=== PATIENT | male | born 1960 | race Caucasian/White ===

== ENCOUNTER 2021-07-17 10:36 | Emergency (ER) | payer OTHER, SELFPAY ==
[2021-07-17] VITALS (16 sets, daily range): BP systolic 138–188; BP diastolic 84–100; PULSE 70–98; RESP 12–21; TEMP 36.4–36.8; O2SAT 99–100
--- NOTE | ~2021-07-17 | XR_ITS ---
EXAMINATION: XR chest 2V EXAM DATE: 07/17/2021 10:57 INDICATION: Left Anterior Cp, Radiating Posteriorly, Acute Onset,. TECHNIQUE: Frontal and lateral projections of the chest obtained and reviewed. There is no prior mars dy for comparison. FINDINGS: The lungs are clear. There are no pleural effusions. The cardiomediastinal silhouette is within normal limits. There is no pneumothorax suspected. The bones and soft tissues are unremarkab le. IMPRESSION: No acute cardiopulmonary findings. Reviewed, dictated and finalized at location B.
--- NOTE | 2021-07-17 10:38 | ECG_ITS ---
Measurements Intervals [place] Rate: 88 P: 56 MS: 152 QRS: 26 QRSD: 97 T: 47 QT: 357 QTc: 432 Interpretive Statements SINUS RHYTHM POSSIBLE LEFT ATRIAL ENLARGEMENT EARLY PRECORDIAL R/S TRANSITION BORDERLINE ECG Electronically Signed On 07-17-2021 10:50:07 CDT by Stewart Gerber D.O.
[2021-07-17 11:02] LABS: Basophils Absolute Auto 0.1 K/mm3 (0.0-0.1); Basophils Percent Auto 1.1 % (0.2-1.2); Eosinophils Absolute Auto 0.3 K/mm3 (0-0.3); Eosinophils Percent Auto 5.8 % (0-4.4); Hematocrit 45.4 % (42.0-52.0); Immature Granulocyte Absolute 0.03 K/mm3 (0.00-0.031); Immature Granulocyte Percent A 0.5 % (0-0.5); Lymphocytes Absolute Auto 1.93 K/mm3 (0.9-3.2); Lymphocytes Percent Auto 33.9 % (18.3-44.2); Mean Corpuscular Hemoglobin 32.6 pg (26-34); Mean Corpuscular Volume 98.7 fl (80-100); Mean Platelet Volume 9.8 fl (7.4-10.4); Monocytes Absolute Auto 0.7 K/mm3 (0.1-0.6); Monocytes Percent Auto 11.4 % (2.6-8.5); Neutrophils Absolute Auto 2.7 K/mm3 (1.3-6.7); Neutrophils Percent Auto 47.3 % (45.5-73.1); Platelet Count Result 201 k/mm3 (150-375); Red Cell Distribution Width 13.5 % (11.5-14.5); White Blood Count 5.7 K/mm3 (4.5-10.0)
[2021-07-17 11:13] LABS: INR 0.9; Prothrombin Time 11.6 Seconds (11.1-14.7)
[2021-07-17 11:14] LABS: Partial Thromboplastin Time 28.9 SECONDS (22.3-36.8)
[2021-07-17 11:17] LABS: Anion Gap 10 mmol/L (8-16); Blood Urea Nitrogen 21 mg/dL (9-20); Calcium 9.5 mg/dL (8.4-10.2); Carbon Dioxide 27 mmol/L (22-30); Chloride 103 mmol/L (98-107); Estimated CRCL calculation 76 ml/min; Estimated Glomerular Filt Rate > 60; Glucose 158 mg/dL (65-110); Sodium 140 mmol/L (137-145)
[2021-07-17 11:28] LABS: Troponin I < 0.012 ng/mL (0.000-0.034)
[2021-07-17] MEDS: ASPIRIN 81 MG CHEWABLE TABLET 324 MG PO (12:01)
--- NOTE | 2021-07-17 12:54 | ED.CHESTPAIN ---
HPI - Chest Pain General Chief Complaint: Chest Pain Stated Complaint: CP Time Seen by Provider: 07/17/21 12:35 Source: patient Mode of arrival: ambulatory Limitations: no limitations History of Present Illness HPI narrative: Patient is a 61-year-old male complaining of chest pain, midsternal, pressure, 6 out of 10, radiating to back accompanied by shortness of breath that started today. Patient states that it occurred after eating. Patient denies any abdominal pain, nausea, vomiting, diaphoresis, fever or chills. Related Data Home Medications Medication Instructions Recorded Confirmed No Home Medications 07/17/21 07/17/21 Allergies Allergy/AdvReac Type Severity Reaction Status Date / Time No Known Allergies Allergy Verified 07/17/21 11:58 Review of Systems Review of Systems: All systems reviewed & are unremarkable except as noted in HPI and below Constitutional: Constitutional: Denies body ache(s), Denies chills, Denies excessive sweating, Denies fatigue, Denies fever(s), Denies headache(s), Denies lethargy, Denies malaise, Denies weakness and Denies weight loss Eyes: Eyes: Denies blurry vision, Denies change in vision and Denies loss of vision ENT: Denies dizziness, Denies ear discharge, Denies headache(s), Denies lip swelling, Denies epistaxis, Denies nasal congestion, Denies neck pain, Denies throat swelling and Denies tongue swelling Cardiovascular: Cardiovascular: Denies diaphoresis, Denies rapid heart rate, Denies edema, Denies irregular heart rhythm, Denies lightheadedness and Denies palpitations Respiratory: Respiratory: Denies chest congestion, Denies cough and Denies hemoptysis Gastrointestinal: Gastrointestinal: Denies abdominal pain, Denies melena, Denies hematochezia, Denies diarrhea, Denies nausea, Denies vomiting and Denies hematemesis Musculoskeletal: Musculoskeletal: Denies abnormal gait, Denies deformity, Denies joint swelling, Denies limited range of motion, Denies neck pain and Denies numbness Neurologic: Denies Abnormal speech present, Denies abnormal gait, Denies confusion, Denies dizziness, Denies headache(s), Denies focal weakness, Denies loss of vision, Denies numbness, Denies Other visual disturbances, Denies Sensory deficit (Neuro) and Denies weakness Psychiatric: Psychiatric: Denies confusion, Denies depression, Denies auditory hallucinations, Denies homicidal ideation and Denies suicidal ideation Endocrine: Endocrine: Denies cold intolerance, Denies excessive sweating, Denies fatigue, Denies heat intolerance and Denies palpitations Hematologic/Lymphatic: Hematologic/Lymphatic: Denies easy bleeding and Denies easy bruising Allergic/Immunologic: Allergic/Immunologic: Denies lip swelling, Denies throat swelling and Denies tongue swelling PMF Family History Family History Other Family history of cardiovascular disease Social History Social History Smoking status: Smoker, status unknown Alcohol intake: current Exam Const: General: cooperative, healthy appearing, comfortable, no acute distress, well developed, alert and awake; No confusion Orientation/consciousness: oriented to person, oriented to place, oriented to time, patient oriented x3 and No confusion Limitations: no limitations HENMT: Head: normal to inspection, normocephalic and atraumatic Ears: hearing grossly normal bilaterally, TM normal on the right and TM normal on the left General nose exam: Normal external nose present, Normal nares present and No nasal discharge present Face and sinus: normal facial exam Mouth: Yes Normal oral and palatal mucosa present, Yes lip normal, Yes tongue normal and Yes oropharynx normal Throat: posterior oropharynx normal, tonsils normal and uvula midline Eyes: General: appearance normal, both eyes and all related structures Pupils: Equal, round and reactive pupils presen
[2021-07-17 13:47] LABS: D Dimer 0.38 ug/mL (<0.48)
[2021-07-17 14:19] LABS: Troponin I < 0.012 ng/mL (0.000-0.034)
== END 2021-07-17 14:46 | disposition left against medical advice (07) ==
PROVIDERS: Emergency Medicine; Emergency Provider Emergency Medicine
DX: R07.2 Precordial pain (principal); R94.31 Abnormal electrocardiogram [ECG] [EKG]
CPT/HCPCS: 36415; 71046; 80048; 84484; 85025; 85380; 85610; 85730; 93005; 99284; A9270

== ENCOUNTER 2022-01-01 06:56 | Inpatient (IN) | payer OTHER, SELFPAY ==
[2022-01-01] VITALS (47 sets, daily range): BP systolic 87–168; BP diastolic 60–96; PULSE 45–82; RESP 12–24; TEMP 35.6–37.1; O2SAT 96–100
--- NOTE | 2022-01-01 | ECHO_ITS ---
Patient Info Name: Jerald Ruiz Age: 61 years : 1960 Gender: Male Ht: 73 in Wt: 225 lbs BSA: 2.31 m2 HR: 47 bpm BP: 92 / 67 mmHg Technical Quality: Good Exam Date: 01/01/2022 10:08 AM Exam Location: [facility] Patient Status: Outpatient Admit Date: 01/01/2022 Staff Ordering Physician: Stewart Gerber DO Industrial Maintenance Electrician: Rene Dillard, PATRICK, RT Attending Provider: Cintia Plaza MD Referring Physician: Buzz HALL; Exam Type: CA echo doppler color flow Study Info Indications R07.9 - Chest pain, unspecified Complete two-dimensional, color flow and Doppler transthoracic echocardiogram is performed. Strain analysis performed. Summary 1. Complete two-dimensional, color flow and Doppler transthoracic echocardiogram is performed. 2. Left ventricular chamber dimension is normal. 3. Basal inferior wall is akinetic. Basal to mid posterior wall is hypokinetic. 4. Left ventricular systolic function is normal, estimated at 55-60%. 5. There is moderately increased left ventricular wall thickness. 6. The left ventricular diastolic function is grade I diastolic dysfunction. 7. E/e' 5 is not elevated. 8. Global longitudinal strain is mildly abnormal at -16.0%. 9. There is trace mitral valve regurgitation. 10. The aortic root size at the sinus of Valsalva is mildly dilated at 4.4 cm. Left Ventricle E/e' 5 is not elevated. Global longitudinal strain is mildly abnormal at -16.0%. Basal inferior wall is akinetic. Basal to mid posterior wall is hypokinetic. Left ventricular chamber dimension is normal. Left ventricular systolic function is normal, estimated at 55-60%. There is moderately increased left ventricular wall thickness. The left ventricular diastolic function is grade I diastolic dysfunction. Right Ventricle Right ventricular systolic function is normal and with normal TAPSE 2.1 cm. Right ventricular chamber dimension is normal. Left Atria Left atrial chamber dimension is normal. Right Atria Right atrial chamber dimension is normal. Aortic Valve The aortic valve is trileaflet. There is no aortic valve stenosis. There is no aortic valve regurgitation. Pulmonic Valve There is no pulmonic regurgitation. Mitral Valve There is no mitral valve stenosis. There is trace mitral valve regurgitation. Tricuspid Valve There is no tricuspid valve regurgitation. Pericardium/Pleural There is no pericardial effusion. Inferior Vena Cava Normal inferior vena cava with >50% collapse upon inspiration consistent with normal right atrial pressure, 5 mmHg. Aorta The aortic root size at the sinus of Valsalva is mildly dilated at 4.4 cm. Left Ventricular Outflow Tract Name Value Normal LVOT 2D LVOT Diameter 2.3 cm LVOT Doppler LVOT Peak Gradient 3 mmHg LVOT Mean Gradient 2 mmHg LVOT VTI 22 cm LVOT VTI/AV VTI Ratio 0.8 LVOT Stroke Volume 91 ml LVOT CO 4.6 l/min LVOT CI
--- NOTE | ~2022-01-01 | XR_ITS ---
EXAMINATION: XR chest 2V DATE: 01/01/2022 07:32 INDICATION: Chest pain. Shortness of breath. TECHNIQUE: Frontal and lateral views of the chest were obtained. COMPARISON: Chest 2 views 07/17/2021 FINDINGS: There are mild airspace opacities in left lower lung zone. No pleural effusion or pneumotho rax. The heart size is normal. There is an old healed fracture of left clavicle. There is mild chroni c anterior wedging of multiple thoracic vertebral bodies. IMPRESSION: 1. Mild atelectasis in left lower lung zone, consistent with atelectasis versus pneumonia. Reviewed, dictated and finalized at location A. OPHYSICS TEACHER
--- NOTE | 2022-01-01 07:06 | ECG_ITS ---
Measurements Intervals [place] Rate: 53 P: MO: 0 QRS: 83 QRSD: 97 T: -40 QT: 447 QTc: 421 Interpretive Statements JUNCTIONAL RHYTHM NONSPECIFIC ST & T-WAVE ABNORMALITY ABNORMAL ECG COMPARED TO ECG 07/17/2021 10:45:17 JUNCTIONAL RHYTHM REPLACES SINUS Electronically Signed On 01-01-2022 7:17:44 RATE EXAMINER by Jayce Trevino M.D.
[2022-01-01] MEDS: SODIUM CHLORIDE 0.9% IV 1,000 ML 999 ML IV CONT (07:17)
[2022-01-01] MEDS: ONDANSETRON INJ 4 MG/2 ML VIAL IV PUSH (07:17)
[2022-01-01 07:29] LABS: Basophils Absolute Auto 0.1 K/mm3 (0.0-0.1); Eosinophils Absolute Auto 0.3 K/mm3 (0-0.3); Eosinophils Percent Auto 4.2 % (0-4.4); Hematocrit 43.1 % (42.0-52.0); Hemoglobin 13.8 g/dL (14.0-18.0); Immature Granulocyte Absolute 0.02 K/mm3 (0.00-0.031); Immature Granulocyte Percent A 0.3 % (0-0.5); Lymphocytes Absolute Auto 1.95 K/mm3 (0.9-3.2); Lymphocytes Percent Auto 28.3 % (18.3-44.2); Mean Corpuscular Hemoglobin 31.4 pg (26-34); Mean Platelet Volume 10.1 fl (7.4-10.4); Monocytes Absolute Auto 0.9 K/mm3 (0.1-0.6); Monocytes Percent Auto 13.7 % (2.6-8.5); Neutrophils Absolute Auto 3.6 K/mm3 (1.3-6.7); Neutrophils Percent Auto 52.5 % (45.5-73.1); Platelet Count Result 249 k/mm3 (150-375); Red Cell Distribution Width 14.6 % (11.5-14.5); White Blood Count 6.9 K/mm3 (4.5-10.0)
[2022-01-01 07:42] LABS: Alanine Aminotransferase 17 U/L (4-50); Albumin Level 3.7 g/dL (3.5-5.1); Alkaline Phosphatase 85 U/L (38-126); Anion Gap 5 mmol/L (8-16); Aspartate Amino Transferase 28 U/L (17-59); Bilirubin,Total 0.3 mg/dL (0.2-1.3); Blood Urea Nitrogen 13 mg/dL (9-20); Calcium 8.5 mg/dL (8.4-10.2); Carbon Dioxide 28 mmol/L (22-30); Chloride 108 mmol/L (98-107); Estimated CRCL calculation 72 ml/min; Estimated Glomerular Filt Rate > 60; Glucose 107 mg/dL (65-110); Lipase 86 U/L (23-300); Potassium 3.5 mmol/L (3.4-5.0); Sodium 141 mmol/L (137-145)
[2022-01-01 07:56] LABS: Troponin I 0.556 ng/mL (0.000-0.034)
[2022-01-01 07:56] LABS: Prothrombin Time 12.4 Seconds (11.1-14.7)
[2022-01-01 07:57] LABS: Partial Thromboplastin Time 31.5 SECONDS (22.3-36.8)
--- NOTE | 2022-01-01 08:37 | ED.CHESTPAIN ---
HPI - Chest Pain General Chief Complaint: Chest Pain Stated Complaint: chest pain Time Seen by Provider: 01/01/22 06:58 History of Present Illness HPI narrative: Patient is a 61-year-old male with history of hypertension and methamphetamine use who presents ER with chest pain. Reports has been having intermittent chest pain over the last 2 weeks. Reports is significantly increased this morning at 2:30 AM. Central and aching. He reports heaviness in his arms bilaterally. No fevers or chills or sweats. No dizziness. No history of MO in the past. Reports last methamphetamine use was yesterday when he smoked some. Does not feel particular anxious at this time. Patient found to be hypotensive on arrival. Earlier in week patient took some Pepto-Bismol which did help his chest discomfort. Patient reports pain is worse with movement. Better with rest. Related Data Home Medications Medication Instructions Recorded Confirmed No Home Medications 07/17/21 01/01/22 Allergies Allergy/AdvReac Type Severity Reaction Status Date / Time No Known Allergies Allergy Verified 01/01/22 14:13 Review of Systems Review of Systems: All systems reviewed & are unremarkable except as noted in HPI and below Constitutional: Constitutional: Denies chills, Denies fever(s) and Denies weakness ENT: Denies nasal congestion and Denies sore throat Cardiovascular: Cardiovascular: Reports chest pain and Denies rapid heart rate Respiratory: Respiratory: Denies cough, Denies dyspnea and Denies wheezing Gastrointestinal: Gastrointestinal: Denies abdominal pain, Denies nausea and Denies vomiting Musculoskeletal: Musculoskeletal: Denies back pain and Denies muscle cramps Comments: Arm tingling PMFSH Past Medical History Medical History (Updated 01/01/22 @ 19:10 by Rufino Zamora MD) Hypertension Surgical History Surgical History (Updated 01/01/22 @ 08:38 by Rufino Zamora MD) No pertinent past surgical history Family History Family History Other Family history of cardiovascular disease Social History Social History (Updated 01/01/22 @ 08:38 by Rufino Zamora MD) Smoking packs per day: 1 Smoking cigarettes per day: 20.0 Years smoked: 40 Smoking pack-years: 40.00 Smoking status: Current every day smoker Tobacco type: cigarettes Alcohol intake: former Substance use: current Substance use type: methamphetamine Spiritual care concerns: No Exam Narrative: GENERAL: Well-appearing, well-nourished, and in no acute distress. HEAD: Normocephalic, atraumatic. EYES: PERRL and EOMI. ENT: Mucous membranes moist. CHEST: Clear to auscultation. No respiratory distress. HEART: Bradycardic and regular. Normal peripheral pulses. ABDOMEN: Soft, mild epigastric tenderness without guarding, nondistended. EXTREMITIES: Normal range of motion. No edema. SKIN: Warm, dry, no rash. NEURO: Alert and oriented x3. PSYCH: Normal mood and affect. Course Course Emergency Course: Patient informed results. Admit to hospitalist. Cardiology consulted. Heparin started. Vital Signs Vital signs: Vital Signs Temperature 97.8 F 01/01/22 06:55 Pulse Rate 54 L 01/01/22 06:55 Respiratory Rate 12 01/01/22 06:55 Blood Pressure 87/60 L 01/01/22 06:55 Pulse Oximetry 99 01/01/22 06:55 Temperature 97.8 F 01/01/22 18:10 Pulse Rate 75 01/01/22 18:10 Respiratory Rate 16 01/01/22 18:10 Blood Pressure 165/84 H 01/01/22 18:10 Pulse Oximetry 100 01/01/22 18:10 MDM - Chest Pain Lab Data Result diagrams: 01/01/22 07:22 01/01/22 07:22 Labs: Lab Results 01/01/22 01/01/22 01/01/22 Range/Units 07:22 07:22 07:22 WBC 6.9 (4.5-10.0) K/mm3 RBC 4.40 L (4.6-6.20) M/mm3 Hgb 13.8 L (14.0-18.0) g/dL Hct 43.1 (42.0-52.0) % MCV 98.0 (80-100) fl MCH 31.4 (26-34) pg MCHC 32.0 (32-36
--- NOTE | 2022-01-01 08:39 | PM.CNCAR ---
Assessment and Plan Assessment and plan (1) Chest pain: Code(s): R07.9 - Chest pain, unspecified Status: Acute Assessment and Plan: Troponin elevated with ongoing chest pains, probably consistent with ACS. Trend troponin. Start Heparin drip in ER. Aspirin. Risks/benefits/alternative treatment to cath discuss with patient and he is agreeable for procedure. Notified HCG for left heart cath. Obtain echo. Check Lipid panel. Check TSH. (2) Hypertension: Code(s): I10 - Essential (primary) hypertension Status: Inactive Assessment and Plan: Stable. (3) Tobacco abuse: Code(s): Z72.0 - Tobacco use Status: Acute Assessment and Plan: Counseled regarding smoking cessation. (4) Methamphetamine abuse: Code(s): F15.10 - Other stimulant abuse, uncomplicated Status: Acute Assessment and Plan: Counseled to quit use. History of Present Illness History of Present Illness Consult date/time: 01/01/22 08:39 Chest pain. 61 yr old man presents to ER with CP. He has a history of hypertension, smoking, smokes methamphetamines. Reports cp woke him up from sleep at 2 am this morning. Still having pain rated at 2/10 across precordium. No sob. He smokes 1 ppd for many years. He smokes meth twice a week for several years, last use 24 hours ago. EKG shows junctional rhythm with some ST depression in inferior leads. Trop 0.556. Reason For Visit: chest pain Review of Systems Review of Systems: All systems reviewed & are unremarkable except as noted in HPI and below Constitutional: Constitutional: Reports as per HPI, Denies chills and Denies fever(s) Respiratory: Respiratory: Reports as per HPI and Denies dyspnea Gastrointestinal: Gastrointestinal: Reports as per HPI, Denies abdominal pain and Reports heartburn Genitourinary: Genitourinary: Reports as per HPI and Denies dysuria Musculoskeletal: Musculoskeletal: Reports as per HPI Neurologic: Reports as per HPI, Denies dizziness and Denies syncope [facility] Past Medical History Medical History (Updated 01/01/22 @ 08:43 by Stewart Gerber DO) Hypertension Surgical History Surgical History (Updated 01/01/22 @ 08:38 by Rufino Zamora MD) No pertinent past surgical history Family History Family History Other Family history of cardiovascular disease Social History Social History (Updated 01/01/22 @ 08:38 by Rufino Zamora MD) Smoking status: Smoker, status unknown Alcohol intake: current Substance use type: amphetamines Meds Home Medications and Allergies Home Medications Medication Instructions Recorded Confirmed Type No Home Medications 07/17/21 07/17/21 History Allergies Allergy/AdvReac Type Severity Reaction Status Date / Time No Known Allergies Allergy Verified 07/17/21 11:58 Vital Signs Vital Signs - 24 hr 01/01/22 06:55 01/01/22 07:16 Temperature 97.8 F Pulse Rate 54 L 54 L Respiratory Rate 12 12 Blood Pressure 87/60 L 92/67 L Pulse Oximetry 99 99 Exam Const: General: cooperative, healthy appearing and comfortable Resp: Auscultation: clear to auscultation bilaterally, no crackles, no rales, no rhonchi and no wheezes Cardio: Jugular venous distension: no JVD Rate: bradycardic Rhythm: regular rhythm Heart sounds: no murmurs Peripheral pulses: dorsalis pedis present GI: GI Palp: No abdominal tenderness and Yes Soft to palpation Neuro: General: oriented to person, oriented to place and oriented to time Extrem: Right lower extremity: no edema Left lower extremity: no edema Results Labs and Meds Result diagrams: 01/01/22 07:22 01/01/22 07:22 Lab results: Cardiac Enzymes 01/01/22 Range/Units 07:22 AST 28 (17-59) U/L Troponin I 0.556 H* (0.000-0.034) ng/mL Coagulation 01/01/22 Range/Units 07:42 PT 12.4 (11.1-14.7) Seconds APT
[2022-01-01 09:03] LABS: Cholesterol 174 mg/dL (0-200); HDL Direct 29 mg/dL; Triglycerides 105 mg/dL (<150)
[2022-01-01] MEDS: NITROGLYCERIN SL 0.4 MG TABLET SUBLINGUAL (09:08)
[2022-01-01 09:14] LABS: LDL Cholesterol Direct 113 mg/dL
[2022-01-01] MEDS: HEPARIN SOD/D5W 100 UNITS/ML 25,000 UNITS/250 ML BAG 10 UNITS IV CONT (09:23)
[2022-01-01] MEDS: HEPARIN SODIUM 5,000 UNITS/ML VIAL 4000 UNITS IV PUSH (09:35)
--- NOTE | 2022-01-01 10:21 | WPDMODSED ---
Moderate Sedation Note-Pt Data Patient Data Diagnosis: Chest pain, troponin elevation, bradycardia Methamphetamine abuse Present Complaint: Chest pain awakening him from sleep at 2:00 a.m. Procedure to be performed/Plan: Left heart catheterization Allergies Allergy/AdvReac Type Severity Reaction Status Date / Time No Known Allergies Allergy Verified 07/17/21 11:58 Home Medications Medication Instructions Recorded Confirmed Type No Home Medications 07/17/21 07/17/21 History Current Medications: Active Medications Heparin Sodium (Porcine) (Heparin Sodium 5,000 Units/Ml Vial) 4,000 units IV PUSH PRN PRN PRN Reason: aPTT less than 55 seconds Heparin Sodium (Porcine) (Heparin Sodium 5,000 Units/Ml Vial) 3,500 units IV PUSH PRN PRN PRN Reason: aPTT 55 - 70 seconds Heparin Sodium/Dextrose (Heparin Sodium/D5w 100 Units/Ml) 25,000 units in 250 mls @ 10 mls/hr IV CONT .Q24H CLARITA; Protocol Last Admin: 01/01/22 09:23 Dose: 1,000 units/hr, 10 mls/hr Documented by: Acetaminophen (Ofirmev 1,000 Mg Ivpb) 1,000 mg in 100 mls @ 400 mls/hr IVPB Q6H PRN PRN Reason: Mild Pain (1-3) or Fever Stop: 01/02/22 09:51 Morphine Sulfate (Morphine Sulfate (*Crx) 4 Mg/Ml Inj) 4 mg IV PUSH Q2H PRN PRN Reason: Pain Rated 7-10 Ondansetron HCl (Ondansetron Inj 4 Mg/2 Ml Vial) 4 mg IV PUSH Q4H PRN PRN Reason: Nausea Perflutren Lipid Microsphere (Perflutren Lipid Microspheres 1.5 Ml Vial Diluted To 10 Ml Total Volume) 0 ml IV PUSH ONCE PRN; Protocol PRN Reason: adequate visualization Sedation/Anesthesia: No previous sedation/anesthesia problems (including family history). [facility] Past Medical History Medical History (Updated 01/01/22 @ 08:43 by Stewart Gerber DO) Hypertension Surgical History Surgical History (Updated 01/01/22 @ 08:38 by Rufino Zamora MD) No pertinent past surgical history Family History Family History Other Family history of cardiovascular disease Social History Social History (Updated 01/01/22 @ 08:38 by Rufino Zamora MD) Smoking status: Smoker, status unknown Alcohol intake: current Substance use type: amphetamines Mod Sed Physical Exam Physical Exam Pre Procedural Exam: Normal: Appearance, Neck, Throat, Airway, Lungs, Heart Size, Heart Rate, Heart Rhythm, Neuro Exam and Extremities Hours since solid foods: 12 Hours since liquid intake: 12 Mallampati Classification: class II Internal Medicine - PN: Obj Da Vital Signs Vital Signs: Vital Signs - 24 hr 01/01/22 06:55 01/01/22 07:16 01/01/22 07:18 Temperature 36.6 C Pulse Rate 54 L 54 L 53 L Respiratory Rate 12 12 14 Blood Pressure 87/60 L 92/67 L Pulse Oximetry 99 99 97 01/01/22 07:38 01/01/22 07:45 01/01/22 08:00 Temperature Pulse Rate 48 L 48 L 46 L Respiratory Rate 16 21 H 22 H Blood Pressure Pulse Oximetry 100 100 99 01/01/22 08:16 01/01/22 08:22 01/01/22 08:51 Temperature Pulse Rate 45 L 51 L 71 Respiratory Rate 18 22 H 17 Blood Pressure 139/79 Pulse Oximetry 98 100 99 01/01/22 09:00 01/01/22 09:01 01/01/22 09:15 Temperature Pulse Rate 51 L 50 L 53 L Respiratory Rate 23 H 20 21 H Blood Pressure 136/93 H Pulse Oximetry 99 100 99 01/01/22 09:16 01/01/22 09:30 01/01/22 09:31 Temperature Pulse Rate 54 L 56 L 60 Respiratory Rate 19 20 14 Blood Pressure 136/87 133/94 H Pulse Oximetry 99 98 98 01/01/22 09:32 01/01/22 09:45 01/01/22 09:46 Temperature Pulse Rate 63 80 67 Respiratory Rate 15 24 H 21 H Blood Pressure 168/91 H Pulse Oximetry 98 01/01/22 10:00 01/01/22 10:01 Temperature Pulse Rate 46 L 50 L Respiratory Rate 20 21 H Blood Pressure 135/92 H Pulse Oximetry 97 98 Meds/Results Medications: Active Medications Generic Name Dose Route Start Last Admin Trade Name Freq PRN Reason Stop Dose Admin Heparin Sodium (Porcine) 4,000 units 01/01/22 08:24 Heparin Sodium 5,000 Un
[2022-01-01 10:26] LABS: Add Urine Microscopic? YES; Amorphous Sediment Urine Few; Appearance Urine Cloudy (Clear); Bilirubin Urine Negative (Negative); Blood Urine Negative (Negative); Color Urine Yellow (Yellow); Glucose Urine UA Negative (Negative); Ketones Urine Negative (Negative); Leukocyte Esterase Ur Negative LEU/UL (Negative); Mucus Urine Rare /lpf; Nitrate Urine Negative (Negative); Protein Urine 1+ mg/dL (Negative); Specific Grav Ur 1.025 (1.001-1.035); Squamous Epithelial Cell Urine Rare /hpf (Few)
--- NOTE | 2022-01-01 11:44 | ECG_ITS ---
Measurements Intervals [place] Rate: 46 P: 65 LA: 161 QRS: 82 QRSD: 90 T: 10 QT: 463 QTc: 408 Interpretive Statements SINUS BRADYCARDIA VOLTAGE CRITERIA FOR LVH [MEETS CRITERIA IN ONE OF: R(aVL), S(V1), R(V5), R(V5/V6)+S(V1)] NONSPECIFIC ST AND T-WAVE ABNORMALITY ABNORMAL ECG COMPARED TO ECG 01/01/2022 06:56:41 SINUS BRADYCARDIA NOW PRESENT LEFT VENTRICULAR HYPERTROPHY NOW PRESENT Electronically Signed On 01-01-2022 15:22:34 UNCRATER by Kelby Zamora M.D.
--- NOTE | 2022-01-01 11:47 | WPDCARDPROC ---
Cardiac Cath Procedure Note Date of procedure:: 01/01/22 Performing physician:: Jayce Trevino MD Indication:: acute coronary syndrome / non ST-elevation CA Brief clinical history:: this is a 61-year-old man with no previous coronary history. He enters the hospital with chest pain that awakened him at about 2:00 a.m. in the morning. His ECG shows some nonspecific T-wave abnormalities with inferior T-wave inversion. He also has sinus bradycardia and occasional junctional rhythm in the emergency room. Patient was given nitroglycerin and heparin with improvement in his symptoms. There is a modest rise in troponin. Catheterization has been recommended in this setting. It also was important to mention that the patient has been using methamphetamine Procedure Procedure performed:: emergency left heart catheterization left ventriculogram coronary angiogram PCI(ISMAEL) to the mid right coronary artery Sedation/Medication given:: no sedation case start time 11:01 a.m. case end time 39 Access site:: right femoral artery Estimated blood loss:: 25 cc Procedure note:: patient was brought to the cardiac catheterization lab from the emergency room where the right femoral triangle was prepared and draped in the normal fashion. Anesthesia was provided with 1% lidocaine infiltrated locally. Using the modified Seldinger technique a 5 Jamaican vascular sheath was placed into the femoral artery. I then used a 5 Jamaican angled pigtail catheter to inject the left ventriculogram in the WARREN projection and to document left-sided hemodynamics and pullback pressures across the aortic valve. Following this a standard 5 Jamaican FL4 catheter was used to engage and inject the left coronary artery. The ascending aorta is somewhat dilated the catheter was somewhat challenging to engage into the left coronary ostium. The right coronary was injected using a standard 5 Jamaican JR4 catheter. Following this the cineangiograms were reviewed and PCI of the mid right coronary artery was recommended and carried out as detailed below. Prior to PCI the 5 Jamaican sheath was changed over a guidewire for 6 Jamaican. The patient was systemically anticoagulated bolus and infusion of Angiomax. He received aspirin in the emergency department. He was given 180 mg of oral Brilinta prior to PCI. Following completion of PCI the sheath was sutured in position the patient was taken to the chest Pain Center/holding area for recovery and sheath removal. Procedure was well tolerated and uncomplicated. Findings:: Hemodynamics: Central aortic pressure was 150/82 left ventricle 150/10 end-diastolic pressure 20 is no gradient on pullback across the aortic valve. Left ventricle: The posterior basal segment appears to be akinetic the remainder of the LV contracts normally ejection fraction is visually estimated to be 60%. The left main coronary artery is large in nicely patent the left anterior descending is a moderate to large caliber artery extending down to the apex. The LAD it is branches are angiographically free of disease. Circumflex is a large caliber vessel giving rise to the marginal branches and a posterior branch. The circumflex angiographically is not disease. The right coronary artery is large in caliber and dominant to the posterior circulation it is 100% occluded in the 2nd portion. There appears to be in abrupt thrombotic occlusion in this segment. It should be mentioned there was some [id number] collateral filling seen to the RPDA and RPL on left coronary injections. Intervention: The right coronary artery was engaged using a standard 6 Jamaican JR4 catheter. I used a 0.014 BMW coronary guidewire to traverse the lesion and advance into the RPDA. I used a penumbra thrombectomy extraction catheter to extract the visible thrombus from the lumen. Following this there was CHATO 2 flow restored in the artery there was a high-grade 95% stenosis in this segment. Th
[2022-01-01] MEDS: MORPHINE SULFATE (*CRX) 4 MG/ML INJ IV PUSH (14:22)
[2022-01-01] MEDS: SODIUM CHLORIDE 0.9% IV 1,000 ML 125 ML IV CONT (14:36)
--- NOTE | 2022-01-01 16:21 | PC.NURSE ---
This patient, Jerald Ruiz, was admitted to IMU Room 212-01. Patient/family oriented to hospital policies and general routines including ID bracelet, bed and alarms, visiting hours, pain management, procedures, bathroom and other care routines, personal items, smoking policy, room service/diet, and visiting hours. Information on how to activate the Rapid Response Team has been discussed. Patient/Family are encouraged to report perceived risks to care and to ask questions if they do not understand what they are told or what they should do.
[2022-01-01] MEDS: LOSARTAN POTASSIUM 25 MG TABLET PO ×2 (17:26→20:09)
[2022-01-01] MEDS: ROSUVASTATIN 10 MG TABLET 20 MG PO (17:26)
--- NOTE | 2022-01-01 19:27 | PM.IMHP ---
H&P: HPI History of Present Illness Date/Time: Patient requires inpatient monitoring with expected length of stay to exceed 2 midnights for management of care. 01/01/22 19:27 Chief Complaint: Chest pain Narrative: Mr. Ruiz is a 61-year-old gentleman who presented to the emergency room with complaints of chest discomfort. Patient was seen in the afternoon after having cardiac catheterization and stent placement his patient was taken to the cardiac catheterization lab from emergency room. Patient states that he does have a history of hypertension, but does not take medication for it. Patient states that last evening he began having chest discomfort across his anterior chest that went down bilateral arms. Patient denied any radiation to his jaws. Patient states that the pain continued to worsen he decided come to the emergency room. Patient states he has been having chest discomfort off and on for the last month. Patient states that he has also noticed he has been having increasing shortness of breath over the last week and he was no longer able to walk up 3 steps without stopping and catching his breath. Patient states that he woke up with this chest discomfort that continued to worsen he called EMS. Patient states that while EN route to the hospital he was given 4 baby aspirin and a spray of nitroglycerin which did not seem to help his pain. Patient admits to being a methamphetamine user and states that he did smoke methamphetamine 2 days ago. Patient denies any lightheadedness, dizziness, syncopal, or near syncopal episodes. Patient denies any palpitations. Review of Systems Review of Systems: A 12 point review of systems was completed patient all pertinent positive and negative per HPI the remainder are unremarkable. [facility] Past Medical History Medical History (Updated 01/01/22 @ 19:35 by Maranda Fischer APRN) Hypertension Surgical History Surgical History (Updated 01/01/22 @ 08:38 by Rufino Zamora MD) No pertinent past surgical history Family History Family History Other Family history of cardiovascular disease Social History Social History (Updated 01/01/22 @ 08:38 by Rufino Zamora MD) Smoking packs per day: 1 Smoking cigarettes per day: 20.0 Years smoked: 40 Smoking pack-years: 40.00 Smoking status: Current every day smoker Tobacco type: cigarettes Alcohol intake: former Substance use: current Substance use type: methamphetamine Spiritual care concerns: No Meds Home Medications and Allergies Home Medications Medication Instructions Recorded Confirmed Type No Home Medications 07/17/21 01/01/22 History Allergies Allergy/AdvReac Type Severity Reaction Status Date / Time No Known Allergies Allergy Verified 01/01/22 14:13 Vital Signs Vital Signs - 24 hr 01/01/22 06:55 01/01/22 07:16 01/01/22 07:18 Temperature 36.6 C Pulse Rate 54 L 54 L 53 L Respiratory Rate 12 12 14 Blood Pressure 87/60 L 92/67 L Pulse Oximetry 99 99 97 01/01/22 07:38 01/01/22 07:45 01/01/22 08:00 Temperature Pulse Rate 48 L 48 L 46 L Respiratory Rate 16 21 H 22 H Blood Pressure Pulse Oximetry 100 100 99 01/01/22 08:16 01/01/22 08:22 01/01/22 08:51 Temperature Pulse Rate 45 L 51 L 71 Respiratory Rate 18 22 H 17 Blood Pressure 139/79 Pulse Oximetry 98 100 99 01/01/22 09:00 01/01/22 09:01 01/01/22 09:15 Temperature Pulse Rate 51 L 50 L 53 L Respiratory Rate 23 H 20 21 H Blood Pressure 136/93 H Pulse Oximetry 99 100 99 01/01/22 09:16 01/01/22 09:30 01/01/22 09:31 Temperature Pulse Rate 54 L 56 L 60 Respiratory Rate 19 20 14 Blood Pressure 136/87 133/94 H Pulse Oximetry 99 98 98 01/01/22 09:32 01/01/22 09:45 01/01/22 09:46 Temperature Pulse Rate 63 80 67 Respiratory Rate 15 24 H 21 H Blood Pressure 168/91 H Pulse Oximetry 98 01/01/22 10:00 01/01/22 10:01
[2022-01-01] MEDS: TICAGRELOR 90 MG TABLET PO (20:09)
[2022-01-02] VITALS: BP 118/83; PULSE 54; PULSE 65; RESP 18; TEMP 36.1; O2SAT 99
[2022-01-02 02:00] VITALS: PULSE 56
--- NOTE | 2022-01-02 02:18 | PC.NURSE ---
I took over care from Sue Hinson RN.
[2022-01-02 04:00] VITALS: BP 119/70; PULSE 63; PULSE 75; RESP 20; TEMP 36.6; O2SAT 98
[2022-01-02 04:24] VITALS: BMI 30.7
--- NOTE | 2022-01-02 05:11 | ECG_ITS ---
Measurements Intervals [place] Rate: 63 P: 44 NM: 151 QRS: 37 QRSD: 84 T: -8 QT: 399 QTc: 411 Interpretive Statements SINUS RHYTHM NONSPECIFIC T-WAVE ABNORMALITY COMPARED TO ECG 01/01/2022 12:47:07 SINUS BRADYCARDIA HAS RESOLVED Electronically Signed On 01-02-2022 13:20:25 DISABILITY REPRESENTATIVE by Jessica Willard M.D.
[2022-01-02 05:49] LABS: Basophils Absolute Auto 0.1 K/mm3 (0.0-0.1); Basophils Percent Auto 0.9 % (0.2-1.2); Eosinophils Absolute Auto 0.3 K/mm3 (0-0.3); Eosinophils Percent Auto 4.1 % (0-4.4); Hematocrit 41.3 % (42.0-52.0); Hemoglobin 13.3 g/dL (14.0-18.0); Immature Granulocyte Absolute 0.02 K/mm3 (0.00-0.031); Immature Granulocyte Percent A 0.3 % (0-0.5); Lymphocytes Absolute Auto 1.75 K/mm3 (0.9-3.2); Lymphocytes Percent Auto 26.6 % (18.3-44.2); Mean Corpuscular HGB Conc 32.2 g/dl (32-36); Mean Corpuscular Hemoglobin 31.1 pg (26-34); Mean Corpuscular Volume 96.7 fl (80-100); Monocytes Absolute Auto 0.6 K/mm3 (0.1-0.6); Monocytes Percent Auto 9.1 % (2.6-8.5); Neutrophils Absolute Auto 3.9 K/mm3 (1.3-6.7); Platelet Count Result 206 k/mm3 (150-375); Red Blood Count 4.27 M/mm3 (4.6-6.20); Red Cell Distribution Width 14.6 % (11.5-14.5); White Blood Count 6.6 K/mm3 (4.5-10.0)
[2022-01-02 06:00] VITALS: PULSE 62
[2022-01-02 06:03] LABS: Anion Gap 2 mmol/L (8-16); Blood Urea Nitrogen 12 mg/dL (9-20); Calcium 7.9 mg/dL (8.4-10.2); Carbon Dioxide 28 mmol/L (22-30); Chloride 107 mmol/L (98-107); Estimated CRCL calculation 88 ml/min; Estimated Glomerular Filt Rate > 60; Glucose 108 mg/dL (65-110); Potassium 3.8 mmol/L (3.4-5.0); Sodium 137 mmol/L (137-145)
--- NOTE | 2022-01-02 06:55 | PM.PNCARD ---
Progress Note: A&P Assessment and Plan (1) Hypertension: Code(s): I10 - Essential (primary) hypertension Status: Acute Assessment and Plan: Stable. (2) Tobacco abuse: Code(s): Z72.0 - Tobacco use Status: Acute Assessment and Plan: Counseled regarding smoking cessation. (3) Methamphetamine abuse: Code(s): F15.10 - Other stimulant abuse, uncomplicated Status: Acute Assessment and Plan: Counseled to quit use. (4) Non-ST elevation [place] (NSTEMI): Code(s): I21.4 - Non-ST elevation (NSTEMI) myocardial infarction Status: Acute Assessment and Plan: Advise to continue aspirin 81 mg daily and Brilinta 90 mg BID, uninterrupted. Continue Rosuvastatin, Losartan, and start Metoprolol Succinate 12.5 mg daily. Will enroll in phase II cardiac rehab as outpatient. February d/c home from cardiology standpoint after EKG done and OK. F/U with me in 1 week. Subjective Date/time seen: 01/02/22 06:55 Denies any more chest pain or sob. Right groin without bleeding/bruising/tenderness/pain. Exam Const: General: cooperative, healthy appearing and comfortable Resp: Auscultation: clear to auscultation bilaterally, no crackles, no rales, no rhonchi and no wheezes Cardio: Jugular venous distension: no JVD Rate: bradycardic Rhythm: regular rhythm Heart sounds: no murmurs Peripheral pulses: dorsalis pedis present GI: GI Palp: No abdominal tenderness and Yes Soft to palpation Neuro: General: oriented to person, oriented to place and oriented to time Extrem: Right lower extremity: no edema Left lower extremity: no edema Objective Data Vital Signs Vital Signs: Vital Signs - 24 hr 01/01/22 07:16 01/01/22 07:18 01/01/22 07:38 Temperature Pulse Rate 54 L 53 L 48 L Respiratory Rate 12 14 16 Blood Pressure 92/67 L Pulse Oximetry 99 97 100 01/01/22 07:45 01/01/22 08:00 01/01/22 08:16 Temperature Pulse Rate 48 L 46 L 45 L Respiratory Rate 21 H 22 H 18 Blood Pressure Pulse Oximetry 100 99 98 01/01/22 08:22 01/01/22 08:51 01/01/22 09:00 Temperature Pulse Rate 51 L 71 51 L Respiratory Rate 22 H 17 23 H Blood Pressure 139/79 Pulse Oximetry 100 99 99 01/01/22 09:01 01/01/22 09:15 01/01/22 09:16 Temperature Pulse Rate 50 L 53 L 54 L Respiratory Rate 20 21 H 19 Blood Pressure 136/93 H 136/87 Pulse Oximetry 100 99 99 01/01/22 09:30 01/01/22 09:31 01/01/22 09:32 Temperature Pulse Rate 56 L 60 63 Respiratory Rate 20 14 15 Blood Pressure 133/94 H Pulse Oximetry 98 98 98 01/01/22 09:45 01/01/22 09:46 01/01/22 10:00 Temperature Pulse Rate 80 67 46 L Respiratory Rate 24 H 21 H 20 Blood Pressure 168/91 H Pulse Oximetry 97 01/01/22 10:01 01/01/22 11:50 01/01/22 12:00 Temperature 98.7 F Pulse Rate 50 L 58 L 61 Respiratory Rate 21 H 16 Blood Pressure 135/92 H 143/93 H Pulse Oximetry 98 98 01/01/22 12:05 01/01/22 12:20 01/01/22 12:35 Temperature Pulse Rate 64 48 L 46 L Respiratory Rate 16 16 16 Blood Pressure 135/90 141/96 H 155/78 H Pulse Oximetry 98 98 98 01/01/22 13:05 01/01/22 13:35 01/01/22 14:00 Temperature Pulse Rate 60 64 59 L Respiratory Rate 16 16 Blood Pressure 127/88 138/86 Pulse Oximetry 99 99 01/01/22 14:05 01/01/22 14:35 01/01/22 14:40 Temperature Pulse Rate 52 L 48 L 52 L Respiratory Rate 16 16 16 Blood Pressure 134/96 H 117/88 131/84 Pulse Oximetry 98 96 98 01/01/22 14:45 01/01/22 14:55 01/01/22 15:05 Temperature Pulse Rate 49 L 49 L 51 L Respiratory Rate 14 14 14 Blood Pressure 140/77 123/79 108/74 Pulse Oximetry 97 98 98 01/01/22 15:10 01/01/22 15:25 01/01/22 15:40 Temperature Pulse Rate 48 L 68 57 L Respiratory Rate 14 16 14 Blood Pressure 118/84 127/81 131/91 H Pulse Oximetry 96 98 98 03/11/22 15:55 01/01/22 16:10 01/01/22 16:40 Temperature 98 F Pulse Rate 45 L 52 L 63 Respiratory Rate 14 14 20 Blood Pressure 124/86
[2022-01-02 08:00] VITALS: BP 140/83; PULSE 70; PULSE 75; RESP 16; TEMP 36.2; O2SAT 99
[2022-01-02] MEDS: ASPIRIN 81 MG CHEWABLE TABLET PO (08:15)
[2022-01-02 08:16] VITALS: PULSE 64
[2022-01-02] MEDS: METOPROLOL SUCCINATE EXT REL 12.5 MG TABCR PO (08:16)
[2022-01-02] MEDS: TICAGRELOR 90 MG TABLET PO (08:16)
[2022-01-02] MEDS: ROSUVASTATIN 10 MG TABLET 20 MG PO (08:17)
[2022-01-02] MEDS: LOSARTAN POTASSIUM 25 MG TABLET PO (08:48)
--- NOTE | 2022-01-02 09:50 | PM.DS ---
DS: Admitting Diagnosis Discharge Date 01/02/22 Admitting Diagnosis NSTEMI DS: Discharge Diagnosis Discharge Diagnosis (1) Non-ST elevation [place] (NSTEMI): Code(s): I21.4 - Non-ST elevation (NSTEMI) myocardial infarction Status: Acute Assessment and Plan: -Patient was taken to the cardiac catheterization lab where he was noted to have a total occlusion of his mid dominant RCA. Patient was also noted to have left to right collaterals. Patient underwent thrombectomy followed by drug-eluting stent placement. Patient tolerated the procedure well and is chest pain-free at this time. Did speak with patient about compliance with medications and the importance of this now that he has a drug-eluting stent. Patient verbalized understanding. -pt go home with ASA, brillinta, rousuvastatin, losartan, and metoprolol per cardiology -stable for discharge per cardiology, f/u with Dr. Gerber in 1 week (2) Methamphetamine abuse: Code(s): F15.10 - Other stimulant abuse, uncomplicated Status: Acute Assessment and Plan: -Encouraged methamphetamine cessation. (3) Tobacco abuse: Code(s): Z72.0 - Tobacco use Status: Acute Assessment and Plan: -Encouraged smoking cessation. (4) Hypertension: Code(s): I10 - Essential (primary) hypertension Status: Acute Assessment and Plan: -Patient states he does have a history of hypertension has been noncompliant with his medications in the past. -Medications resumed and adjusted per cardiolgy -stressed importance of medication compliance DS: Summary Hospital Course Reason for hospitalization: Mr. Ruiz is a 61-year-old gentleman who presented to the emergency room with complaints of chest discomfort and was found to have an NSTEMI and is now s/p cardiac cath. Please see HPI for further details. Hospital Course: Please see above for details of hospital course. Time spent discussing smoking cessation with patient: more than 10 minutes Status at Discharge Cognitive/behavioral status at discharge: stable Functional status at discharge: independent ambulation Overall status at discharge: patient is progressing back to baseline Time Spent with Patient Time attestation: Total time spent providing and/or coordinating discharge services: 35 Time spent: Greater than 30 minutes Exam Narrative: Constitutional: Patient is well-nourished in no acute distress. Patient is alert and oriented x3 HEENT: Moist mucous membranes. No scleral icterus. Neck: Supple Lungs: Lung sounds are clear to auscultation bilaterally. No accessory muscle use. No rhonchi, rales, or wheezes noted. Cardiovascular: RRR, no murmur Abdomen: Soft, round, and nontender. No palpable masses. Extremities: No edema. Nontender. Right groin has a dressing that is dry intact with no hematoma noted. Skin: No rashes or lesions. Warm and dry. Skin is intact. Neurological: No focal neurological deficits. Cranial nerves II-XII grossly intact. Psychiatric: Cooperative, appropriate mood, and affect DS: Data Data Completed and Pending Labs on day of discharge: Labs from last 24 hours 01/02/22 01/02/22 01/02/22 05:18 05:18 01:10 WBC 6.6 RBC 4.27 L Hgb 13.3 L Hct 41.3 L MCV 96.7 MCH 31.1 MCHC 32.2 RDW 14.6 H Plt Count 206 MPV 10.0 Immature Gran % (Auto) 0.3 Neut % (Auto) 59.0 Lymph % (Auto) 26.6 Long % (Auto) 9.1 H Eos % (Auto) 4.1 Baso % (Auto) 0.9 Lymph # (Auto) 1.75 Long # (Auto) 0.6 Eos # (Auto) 0.3 Baso # (Auto) 0.1 Abs Immat Gran (auto) 0.02 Absolute Neuts (auto) 3.9 Absolute Nucleated RBC 0.0 Nucleated RBC % 0.0 Sodium 137 Potassium 3.8 Chloride 107 Carbon Dioxide 28 Anion Gap 2 L BUN 12 Creatinine 1.00 Estim Creat Clear Calc 88 Estimated GFR > 60 Glucose 108 Calcium 7.9 L Troponin I 6.800 H
== END 2022-01-02 11:35 | disposition home or self-care (01) | DRG 174 ==
LOC: ANHED 07:36 → ANHIMU 10:22
PROVIDERS: Internal Medicine Cardiovascular Disease; Nurse Practitioner Adult Health; Specialist; Admitting Provider Hospitalist; Emergency Provider Emergency Medicine; Visit Provider Physician Assistant
PROC: 4A023N7 Measurement of Cardiac Sampling and Pressure, Left Heart, Percutaneous Approach (ICD-10-PCS; CPT 93452; principal; 2022-01-01 10:45)
PROC: 027034Z Dilation of Coronary Artery, One Artery with Drug-eluting Intraluminal Device, Percutaneous Approach (ICD-10-PCS; CPT 92973; 2022-01-01 10:45)
PROC: 027034Z Dilation of Coronary Artery, One Artery with Drug-eluting Intraluminal Device, Percutaneous Approach (ICD-10-PCS; 2022-01-01 10:45)
DX: I21.4 Non-ST elevation (NSTEMI) myocardial infarction (principal); I25.10 Atherosclerotic heart disease of native coronary artery without angina pectoris; I10 Essential (primary) hypertension; I95.9 Hypotension, unspecified; F17.210 Nicotine dependence, cigarettes, uncomplicated; F15.10 Other stimulant abuse, uncomplicated; Z91.14 Patient's other noncompliance with medication regimen
CPT/HCPCS: 36415; 71046; 80048; 80053; 80061; 81001; 83690; 84443; 84484; 85025; 85610; 85730; 92973; 93005; 93306; 93458; 96361; 96374; 96375; 99285; A9270; C1725; C1757; C1769; C1874; C1887; C1894; C9600; J0131; J0583; J1644; J2270; J2405; J7030; J7040

== ENCOUNTER 2022-02-27 07:06 | Emergency (ER) | payer OTHER, SELFPAY ==
--- NOTE | ~2022-02-27 | CT_ITS ---
EXAMINATION: CT abdomen pelvis wo con DATE: 02/27/2022 10:54 INDICATION: Left flank pain TECHNIQUE: Computed tomography (CT) of the abdomen and pelvis was performed without intravenous contr ast. The dose-length product (DLP) was 820.95 mGy-cm. Automated exposure control and iterative recons truction technique were employed. COMPARISON: None FINDINGS: Minimal dependent atelectasis is present in the lung bases. The heart size is normal. Punct ate calcifications in an otherwise normal spleen likely represent healed granulomatous disease. The l iver, pancreas, gallbladder, and adrenal glands are normal. There is a 5 mm stone in the proximal lef t ureter which causes mild hydronephrosis. There is a 2 mm nonobstructing stone of the left kidney. T here are multiple nonobstructing stones of the right kidney which measure up to 4 mm. There is calcif ied atherosclerosis of the aorta and many of the other arteries. No pathologically enlarged abdominal or pelvic lymph nodes are identified. There is no free intraperitoneal gas or evidence of bowel obst ruction. Colonic diverticulosis is present without evidence of diverticulitis. There is mild lumbar s pondylosis. IMPRESSION: 1. 5 mm stone of the proximal left ureter causing mild hydronephrosis. 2. Bilateral nephrolithiasis. Reviewed, dictated and finalized at location A.
[2022-02-27 07:05] VITALS: BP 200/110; PULSE 59; RESP 13; TEMP 36.6; O2SAT 95
--- NOTE | 2022-02-27 07:15 | ECG_ITS ---
Measurements Intervals [place] Rate: 53 P: 52 [place]: 150 QRS: 22 QRSD: 92 T: 28 QT: 426 QTc: 402 Interpretive Statements SINUS BRADYCARDIA POSSIBLE LEFT ATRIAL ENLARGEMENT INCOMPLETE RIGHT BUNDLE BRANCH BLOCK BASELINE ARTIFACT- II, III BORDERLINE ECG Electronically Signed On 02-27-2022 7:50:12 CDT by Stewart Gerber D.O.
--- NOTE | 2022-02-27 07:35 | ED.GENADULT ---
HPI - General Adult General Chief complaint: Back Pain/Injury Stated complaint: L flank pain Source: family and RN notes reviewed Limitations: no limitations History of Present Illness HPI narrative: 61-year-old male with history of coronary artery disease and hypertension presenting to the emergency department for evaluation of cute onset of left flank pain. Patient states flank pain started approximately 9 PM last night. Patient denies any falls or injury. Patient denies any associated numbness or weakness. Patient denies any pain with urination. Patient denies any radiation of the pain. Patient did call EMS and was treated with 100 mcg of fentanyl. Upon arrival to the emergency department patient is resting comfortably at this time. Patient denies any prior history of kidney stones. Related Data Allergies Allergy/AdvReac Type Severity Reaction Status Date / Time No Known Allergies Allergy Verified 02/27/22 07:40 Review of Systems Review of Systems: CONSTITUTIONAL: Denies fever, chills, or sweats. EYES: Denies visual changes, redness, or discharge. ENT: Denies rhinorrhea, congestion, sore throat, or otalgia. CARDIOVASCULAR: Denies chest pain, palpitations, or edema. RESPIRATORY: Denies cough or dyspnea. GASTROINTESTINAL: Left flank pain GENITOURINARY: Denies dysuria or hematuria. SKIN: Denies rash or itching. MUSCULOSKELETAL: Denies back pain, joint pain, or myalgia. NEUROLOGIC: Denies headache, numbness, or weakness. PMFSH Past Medical History Medical History Hypertension Surgical History Surgical History No pertinent past surgical history Family History Family History Other Family history of cardiovascular disease Social History Social History Smoking packs per day: 1 Smoking cigarettes per day: 20.0 Years smoked: 40 Smoking pack-years: 40.00 Smoking status: Current every day smoker Tobacco type: cigarettes Alcohol intake: former Substance use: current Substance use type: methamphetamine Spiritual care concerns: No Exam Narrative: APPEARANCE: Well appearing, no pain, no distress, well-nourished. HEAD: normocephalic, atraumatic. EYES: PERRLA/EOMI, conjunctivae clear. THROAT: Pharynx clear, no exudate. NECK: Supple. No adenopathy, no masses. RESPIRATORY: Airway patent, respirations nonlabored. Clear to auscultation bilaterally, no rales, rhonchi, wheezing. CARDIOVASCULAR: Regular rate and rhythm without murmurs rubs or gallops. ABDOMINAL: Anterior abdomen including left lower quadrant is soft and nontender to palpation. Patient does have some left CVA tenderness to palpation. MUSCULOSKELETAL: Moves all extremities. Strength/ROM intact, No edema, No calf tenderness. NEURO: Alert. Cranial nerves II through XII intact. Grossly intact SKIN: Warm, dry. Normal Color Course Course Emergency Course: Nausea was controlled with Zofran and Reglan. UA did show hematuria. CT scan did show a 5 mm proximal ureteral stone. Was updated on the results of his labs and imaging. Patient reports his symptoms are controlled. Patient is comfortable with the plan for discharge and close follow-up with urology. Patient was in no distress at time of discharge from the emergency department. Vital Signs Vital signs: Vital Signs Temperature 97.8 F 02/27/22 07:05 Pulse Rate 59 L 02/27/22 07:05 Respiratory Rate 13 02/27/22 07:05 Blood Pressure 200/110 H 02/27/22 07:05 Pulse Oximetry 95 02/27/22 07:05 Temperature 97.8 F 02/27/22 07:05 Pulse Rate 69 02/27/22 12:50 Respiratory Rate 18 02/27/22 12:50 Blood Pressure 150/83 H 02/27/22 12:50 Pulse Oximetry 100 02/27/22 12:50 Medical Decision Making Vital Signs Vital Signs: Vital Signs Temper
[2022-02-27 07:49] LABS: Appearance Urine Clear (Clear); Bilirubin Urine Negative (Negative); Glucose Urine UA Negative (Negative); Ketones Urine 1+ mg/dL (Negative); Leukocyte Esterase Ur Negative LEU/UL (Negative); Nitrate Urine Negative (Negative); Protein Urine Negative (Negative); Urobilinogen Urine 0.2 mg/dL (<2.0); pH Urine 7.5 (5.0-9.0)
[2022-02-27 07:51] LABS: Add Urine Microscopic? YES; Blood Urine Trace-Intact (Negative); Color Urine Straw (Yellow)
[2022-02-27 08:00] LABS: Basophils Percent Auto 0.5 % (0.2-1.2); Eosinophils Absolute Auto 0.2 K/mm3 (0-0.3); Eosinophils Percent Auto 1.8 % (0-4.4); Hematocrit 45.5 % (42.0-52.0); Hemoglobin 14.7 g/dL (14.0-18.0); Immature Granulocyte Absolute 0.02 K/mm3 (0.00-0.031); Immature Granulocyte Percent A 0.2 % (0-0.5); Lymphocytes Percent Auto 14.2 % (18.3-44.2); Mean Corpuscular HGB Conc 32.3 g/dl (32-36); Mean Corpuscular Hemoglobin 31.1 pg (26-34); Mean Corpuscular Volume 96.4 fl (80-100); Mean Platelet Volume 9.9 fl (7.4-10.4); Monocytes Absolute Auto 0.9 K/mm3 (0.1-0.6); Monocytes Percent Auto 10.5 % (2.6-8.5); Neutrophils Absolute Auto 6.2 K/mm3 (1.3-6.7); Neutrophils Percent Auto 72.8 % (45.5-73.1); Platelet Count Result 217 k/mm3 (150-375); Red Blood Count 4.72 M/mm3 (4.6-6.20); Red Cell Distribution Width 13.8 % (11.5-14.5); White Blood Count 8.5 K/mm3 (4.5-10.0)
[2022-02-27 08:10] LABS: Alanine Aminotransferase 17 U/L (4-50); Albumin Level 4.2 g/dL (3.5-5.1); Alkaline Phosphatase 86 U/L (38-126); Anion Gap 7 mmol/L (8-16); Aspartate Amino Transferase 30 U/L (17-59); Bilirubin,Total 0.9 mg/dL (0.2-1.3); Blood Urea Nitrogen 19 mg/dL (9-20); Calcium 8.8 mg/dL (8.4-10.2); Carbon Dioxide 25 mmol/L (22-30); Chloride 106 mmol/L (98-107); Estimated CRCL calculation 57 ml/min; Estimated Glomerular Filt Rate 44; Glucose 126 mg/dL (65-110); Lactic Acid Reflex 0.8 mmol/L (0.7-2.0); Potassium 3.7 mmol/L (3.4-5.0); Sodium 138 mmol/L (137-145)
[2022-02-27] MEDS: ONDANSETRON INJ 4 MG/2 ML VIAL IV PUSH (08:14)
[2022-02-27] MEDS: SODIUM CHLORIDE 0.9% IV 1,000 ML 999 ML IV CONT ×2 (08:14→11:00)
[2022-02-27 08:16] LABS: Squamous Epithelial Cell Urine Rare /hpf (Few); WBC Urine 0-3 /hpf
--- NOTE | 2022-02-27 08:58 | PC.NURSE ---
Pt HR 40s-50s. Per EDP dont give ordered metoprolol.
[2022-02-27 09:01] VITALS: BP 186/101; PULSE 61; RESP 18; O2SAT 97
[2022-02-27] MEDS: hydrALAZINE HCL 20 MG/ML VIAL 10 MG IV PUSH (09:09)
[2022-02-27 09:29] VITALS: BP 154/99; PULSE 61; RESP 18; O2SAT 100
[2022-02-27] MEDS: METOCLOPRAMIDE HCL INJ 10 MG/2 ML VIAL IV PUSH (09:48)
[2022-02-27 11:03] VITALS: BP 172/109; PULSE 71; RESP 18; O2SAT 99
[2022-02-27 11:56] VITALS: BP 161/81; PULSE 58; RESP 18; O2SAT 99
[2022-02-27] MEDS: TAMSULOSIN HCL 0.4 MG CAPSULE PO (12:08)
[2022-02-27] MEDS: HYDROcodone/acetaminophen (*CRX) 5-325 MG TABLET 1 TAB PO (12:08)
[2022-02-27 12:50] VITALS: BP 150/83; PULSE 69; RESP 18; O2SAT 100
== END 2022-02-27 12:50 | disposition home or self-care (01) ==
PROVIDERS: Emergency Provider Emergency Medicine
DX: N13.2 Hydronephrosis with renal and ureteral calculous obstruction (principal); I25.10 Atherosclerotic heart disease of native coronary artery without angina pectoris; I10 Essential (primary) hypertension; F17.210 Nicotine dependence, cigarettes, uncomplicated; R00.1 Bradycardia, unspecified; I45.10 Unspecified right bundle-branch block; R94.31 Abnormal electrocardiogram [ECG] [EKG]
CPT/HCPCS: 36415; 74176; 80053; 81001; 83605; 85025; 93005; 96361; 96374; 96375; 99284; A9270; J0360; J2405; J2765; J7030

== ENCOUNTER 2023-07-07 23:43 | Observation (INO) | payer OTHER, SELFPAY ==
--- NOTE | ~2023-07-07 | XR_ITS ---
Clinical Indication: Chest pain PA and lateral views of the chest: Comparison: 01/01/2022 Findings: The lungs are clear, without evidence of focal consolidation or pleural effusion. Cardiome diastinal silhouette is within normal limits. Bones and soft tissues are unremarkable. Impression: Normal chest. Reviewed, dictated and finalized at location . Impression: Normal chest.
[2023-07-07 23:47] VITALS: BP 183/112; PULSE 78; RESP 18; TEMP 36.6; O2SAT 100
[2023-07-08] VITALS (52 sets, daily range): BP systolic 104–183; BP diastolic 58–113; PULSE 59–87; RESP 13–21; O2SAT 96–100
--- NOTE | 2023-07-08 00:14 | ED.GENADULT ---
HPI - General Adult General Chief complaint: Chest Pain Stated complaint: chest pain Time Seen by Provider: 07/08/23 00:10 History of Present Illness HPI narrative: Patient is 61-year-old gentleman who presents the emergency department with chief complaint of chest pain. Patient reports he was laying down and noticed a pressure or heaviness in the central portion of his chest patient also had a feeling of indigestion patient reports this feels similar to whenever he had his heart attack in the past that required 1 stent patient states that he smokes a pack a day of cigarettes and reports that he is taking 2 baby aspirin prior to arrival and reports that the symptoms have not improved. Patient denies shortness of breath denies diaphoresis Related Data Allergies Allergy/AdvReac Type Severity Reaction Status Date / Time No Known Allergies Allergy Verified 07/08/23 00:34 Review of Systems Review of Systems: A 10 system review of systems was completed on the patient and is negative except for what is stated in the HPI. Nursing and ancillary documentation was reviewed. [facility] Past Medical History Medical History Hypertension Surgical History Surgical History No pertinent past surgical history Family History Family History Other Family history of cardiovascular disease Social History Social History Smoking packs per day: 1 Smoking cigarettes per day: 20.0 Years smoked: 40 Smoking pack-years: 40.00 Smoking status: Current every day smoker Tobacco type: cigarettes Alcohol intake: former Substance use: current Substance use type: methamphetamine Spiritual care concerns: No Exam Narrative: GENERAL: Well-appearing, well-nourished, and in no acute distress. HEAD: Normocephalic, atraumatic. EYES: PERRLA and EOMI. ENT: Nares clear, no rhinorrhea or epistaxis. Mucous membranes moist. NECK: Supple. CHEST: Clear to auscultation. No respiratory distress. HEART: Regular rate and rhythm. No murmur heard. Normal peripheral pulses. ABDOMEN: Soft, nontender, nondistended, normal active bowel sounds. EXTREMITIES: Normal range of motion. No edema. SKIN: Warm, dry, no rash. NEURO: No focal deficits. Alert and oriented x3. PSYCH: Normal mood and affect. Course Vital Signs Vital signs: Vital Signs Temperature 36.6 C 07/07/23 23:47 Pulse Rate 78 07/07/23 23:47 Respiratory Rate 18 07/07/23 23:47 Blood Pressure 183/112 H 07/07/23 23:47 Pulse Oximetry 100 07/07/23 23:47 Oxygen Delivery Room Air 07/07/23 23:47 Temperature 36.6 C 07/07/23 23:47 Pulse Rate 62 07/08/23 02:46 Respiratory Rate 16 07/08/23 02:46 Blood Pressure 170/95 H 07/08/23 02:46 Pulse Oximetry 98 07/08/23 02:46 Oxygen Delivery Room Air 07/07/23 23:47 Medical Decision Making MDM Narrative Medical decision making narrative: Differential diagnose includes ACS, atypical chest pain, NSTEMI EKG did not show evidence of acute ST elevation NE Laboratory studies were obtained which showed normal CBC CMP was within normal limits lipase was negative initial troponin is 0.013 Patient's pain was improved with nitro and aspirin Chest x-ray showed no focal infiltrate Patient has a heart score of 4 and the patient will be admitted for observation. Vital Signs Vital Signs: Vital Signs Temperature 36.6 C 07/07/23 23:47 Pulse Rate 78 07/07/23 23:47 Respiratory Rate 18 07/07/23 23:47 Blood Pressure 183/112 H 07/07/23 23:47 Pulse Oximetry 100 07/07/23 23:47 Oxygen Delivery Room Air 07/07/23 23:47 Temperature 36.6 C 07/07/23 23:47 Pulse Rate 62 07/08/23 02:46 Respiratory Rate 16 07/08/23 02:46 Blood Pressure 1
[2023-07-08 00:16] LABS: Basophils Percent Auto 0.6 % (0.2-1.2); Eosinophils Absolute Auto 0.2 K/mm3 (0-0.3); Eosinophils Percent Auto 3.4 % (0-4.4); Hematocrit 43.8 % (42.0-52.0); Hemoglobin 14.1 g/dL (14.0-18.0); Immature Granulocyte Absolute 0.04 K/mm3 (0.00-0.031); Immature Granulocyte Percent A 0.8 % (0-0.5); Lymphocytes Absolute Auto 1.19 K/mm3 (0.9-3.2); Lymphocytes Percent Auto 22.8 % (18.3-44.2); Mean Corpuscular HGB Conc 32.2 g/dl (32-36); Mean Corpuscular Volume 99.3 fl (80-100); Mean Platelet Volume 9.9 fl (7.4-10.4); Monocytes Absolute Auto 0.8 K/mm3 (0.1-0.6); Monocytes Percent Auto 14.5 % (2.6-8.5); Neutrophils Percent Auto 57.9 % (45.5-73.1); Platelet Count Result 183 k/mm3 (150-375); Red Blood Count 4.41 M/mm3 (4.6-6.20); Red Cell Distribution Width 13.8 % (11.5-14.5); White Blood Count 5.2 K/mm3 (4.5-10.0)
[2023-07-08 00:19] LABS: INR 0.9; Prothrombin Time 12.9 Seconds (11.1-14.7)
[2023-07-08 00:21] LABS: Partial Thromboplastin Time 31.2 SECONDS (22.3-36.8)
[2023-07-08] MEDS: ASPIRIN 81 MG CHEWABLE TABLET 324 MG PO (00:26)
[2023-07-08 00:29] LABS: Alanine Aminotransferase 23 U/L (6-50); Albumin Level 4.1 g/dL (3.5-5.1); Alkaline Phosphatase 90 U/L (38-126); Aspartate Amino Transferase 32 U/L (17-59); Bilirubin,Total 0.5 mg/dL (0.2-1.3); Blood Urea Nitrogen 20 mg/dL (9-20); Calcium 9.3 mg/dL (8.4-10.2); Carbon Dioxide 27 mmol/L (22-30); Estimated CRCL calculation 76 ml/min; Estimated Glomerular Filt Rate > 60; Glucose 112 mg/dL (65-110); Lipase 296 U/L (23-300)
[2023-07-08] MEDS: NITROGLYCERIN SL 0.4 MG TABLET SUBLINGUAL (00:32)
[2023-07-08] MEDS: MORPHINE SULFATE (*CRX) 4 MG/ML INJ IV PUSH (00:32)
--- NOTE | 2023-07-08 00:37 | PC.NURSE ---
Pt given second SL Nitro due to pain remains at 8/10.
[2023-07-08 00:38] LABS: Troponin I 0.013 ng/mL (0.000-0.034)
[2023-07-08 03:05] LABS: Anion Gap 6 mmol/L (8-16); Chloride 104 mmol/L (98-107); Potassium 4.1 mmol/L (3.4-5.0); Sodium 137 mmol/L (137-145)
--- NOTE | 2023-07-08 03:12 | PC.NURSE ---
SEE DOWN TIME PAPER CHARTING FROM [id number] AM. ANNA, RN
[2023-07-08 03:39] LABS: Troponin I < 0.012 ng/mL (0.000-0.034)
[2023-07-08 06:33] LABS: Troponin I 0.013 ng/mL (0.000-0.034)
--- NOTE | 2023-07-08 08:22 | PC.NURSE ---
pt sleeping on stretcher. no distress noted.
[2023-07-08] MEDS: ASPIRIN 81 MG CHEWABLE TABLET PO (10:29)
--- NOTE | 2023-07-08 10:40 | PC.NURSE ---
dr green contacted regarding pts potential for discharge from ed. states will come evaluate pt.
--- NOTE | 2023-07-08 12:47 | PM.SD2 ---
Same Day Admit/Disch: HPI History of Present Illness Chief complaint: Chest Pain Narrative: Jerald Ruiz is a 63 year old male with CAD, HTN and HLD here for chest pain. Patient was seen here in December of 2021 for chest pain found to have NSTEMI. Left heart catheterization showed 100% RCA occlusion with thrombectomy and drug-eluting stent performed. Patient was discharged home on appropriate medications. He states he followed up with a claims service adjustor once but has not been back since. He has essentially stopped all his medications a while ago. He continues to use meth and used meth on the evening of July 06. He continues to smoke a pack a day as well. Patient had history of acid reflux. But now before onset of chest pain last evening, he had pizza which he knows can trigger his acid reflux symptoms. Around 9:00 p.m. while lying in bed, he developed chest pain. It did feel similar to his chest pain when he had his heart attack. A felt like ?someone sitting on my chest?. Symptoms lasted a few hours. He took antacids than aspirin without benefit. There is no radiation to the pain. Shortness of breath or nausea. No diaphoresis. Symptoms seem to be better with belching. He does state that the symptoms are similar to his acid reflux symptoms as well. He was brought by a friend by car to the hospital because of the persistent pain. Emergency room he was given 2 aspirin. Chest pain resolved after morphine. Review systems was unremarkable except that he had chills but no fevers. He had headache the other day but better with Excedrin. PMF Past Medical History Medical History CAD (coronary artery disease) Hypertension Non-ST elevation [place] (NSTEMI) Surgical History Surgical History No pertinent past surgical history Family History Family History Other Family history of cardiovascular disease Social History Social History (Updated 07/08/23 @ 13:17 by Rigo Mays MD) Social History: Patient has a history of homelessness but is currently living with his son. He is a full code. He nominates his son to be the individual would make medical decisions for him if he is unable. He denies alcohol use. He smokes a pack a day for the past 40+ years. History of methamphetamine use as detailed above. Smoking packs per day: 1 Smoking cigarettes per day: 20.0 Years smoked: 40 Smoking pack-years: 40.00 Smoking status: Current every day smoker Tobacco type: cigarettes Alcohol intake: former Substance use: current Substance use type: methamphetamine Spiritual care concerns: No Same Day Admit/Disch: Med Pre-admit Medications Home Medications Medication Instructions Recorded Confirmed Type No Home Medications 07/08/23 07/08/23 History Review of Systems Review of Systems All systems reviewed & are unremarkable except as noted in HPI and below Exam Narrative: AF 97.9 157/83 74 17 98% ra Gen - well-nourished, well-developed male in no acute respiratory distress who is nontoxic-appearing lying semi recumbent in bed HEENT - normocephalic. Atraumatic. Pupils equal round and reactive. Extraocular motions intact. Sclera clear and anicteric. Nares patent. Oropharynx was clear. No oral lesions but extremely poor dentition. Moist mucous membranes. Tongue was midline. Palate trip symmetrically. No facial asymmetry. Neck - neck was supple. No dominant adenopathy, thyromegaly or masses. 2+ carotid upstrokes without bruits. Chest - distant but clear breath sounds to auscultation bilaterally. No wheezes or crackles. CV - heart was regular rate and rhythm. S1-S2. No murmurs gallops or rubs. Abd - abdomen was soft. Nontender. Nondistended. Positive bowel sounds. No organomegaly or masses. Ext - no clubbing, cyanosis or LLE edema
== END 2023-07-08 15:22 | disposition home or self-care (01) ==
LOC: ANHED 07-08 03:59 → ANHIMU 07-08 13:28
PROVIDERS: Admitting Provider Internal Medicine; Emergency Provider Emergency Medicine; Visit Provider Internal Medicine
DX: R07.9 Chest pain, unspecified (principal); I10 Essential (primary) hypertension; I25.2 Old myocardial infarction; I25.10 Atherosclerotic heart disease of native coronary artery without angina pectoris; Z95.5 Presence of coronary angioplasty implant and graft; E78.5 Hyperlipidemia, unspecified; F17.210 Nicotine dependence, cigarettes, uncomplicated; F15.10 Other stimulant abuse, uncomplicated
CPT/HCPCS: 36415; 71046; 80053; 83690; 84484; 85025; 85610; 85730; 96374; 99285; A9270; G0378; G0379; J2270